=== PATIENT | male | born 1960 | race Caucasian/White ===

== ENCOUNTER 2022-02-11 19:22 | Inpatient (IN) | payer MEDICARE, MEDICAID, SELFPAY ==
[2022-02-11 19:31] VITALS: BP 131/94; PULSE 111; RESP 20; TEMP 36.3; O2SAT 98
[2022-02-11 19:49] VITALS: BP 131/94; PULSE 111; RESP 20; TEMP 36.3; O2SAT 98; BMI 29.8
[2022-02-11 20:00] VITALS: BP 131/94; PULSE 111; RESP 20; TEMP 36.3; O2SAT 98
[2022-02-11 20:15] VITALS: BP 131/94; PULSE 111; RESP 20; TEMP 36.3; O2SAT 98
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
[2022-02-11] MEDS: montelukast sodium 10 mg Tablet PO (21:08)
[2022-02-11] MEDS: atorvastatin 40 mg Tablet 20 MG PO (21:09)
[2022-02-11] MEDS: tizanidine 4 mg Tablet PO (21:09)
[2022-02-11] MEDS: CELEcoxib 100 mg Capsule PO (21:41)
[2022-02-11] MEDS: pregabalin 100 mg Capsule PO (21:42)
[2022-02-11] MEDS: divalproex ER 500 mg Tablet (24H) 1000 MG PO (21:43)
[2022-02-11] MEDS: risperiDONE 1 mg Tablet PO (21:43)
[2022-02-11] MEDS: propranolol 20 mg Tablet 30 MG PO (22:30)
[2022-02-12 05:50] VITALS: BP 131/94; PULSE 111; RESP 20; TEMP 36.3; O2SAT 98
[2022-02-12 06:25] VITALS: BP 137/96; PULSE 84; RESP 19; TEMP 36.8; O2SAT 98
[2022-02-12] MEDS: duloxetine 30 mg Capsule PO (08:15)
[2022-02-12] MEDS: propranolol 20 mg Tablet 30 MG PO ×2 (08:15→17:09)
[2022-02-12] MEDS: divalproex ER 500 mg Tablet (24H) PO (08:16)
[2022-02-12] MEDS: pregabalin 100 mg Capsule PO ×2 (08:16→17:09)
[2022-02-12] MEDS: pantoprazole DR 40 mg Tablet PO (08:16)
[2022-02-12] MEDS: CELEcoxib 100 mg Capsule PO ×2 (08:16→17:09)
[2022-02-12] MEDS: amlodipine 10 mg Tablet PO (08:16)
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
[2022-02-12 12:48] LABS: Basophils # 0.1 10^3/uL (0.0-0.1); Eosinophils # 0.3 10^3/uL (0.0-0.8); Eosinophils % 2.7 %; Hematocrit 49.5 % (42.0-52.0); Hemoglobin 16.7 g/dL (11.7-16.6); Lymphocytes # 3.3 10^3/uL (0.8-4.8); Lymphocytes % 33.8 %; Mean Corpuscular HGB Conc 33.7 g/dL (30.0-36.0); Mean Corpuscular Hemoglobin 31.3 pg (28.0-34.0); Mean Corpuscular Volume 92.9 fl (80-94); Mean Platelet Volume 10.1 fL (7.4-10.4); Monocytes # 1.1 10^3/uL (0.2-0.9); Monocytes % 11.5 %; Neutrophils # 4.91 10^3/uL (1.8-7.7); Nucleated Red Blood Cells % 0 %; Platelet Count 305 10^3/cmm (130-400); Red Blood Count 5.33 10^6/uL (4.1-5.3); Red Cell Distribution Width 13.2 % (12.1-15.1); White Blood Count 9.8 10^3/uL (4.0-10.0)
[2022-02-12 14:00] VITALS: BP 126/87; PULSE 87; RESP 18; TEMP 36.8; O2SAT 93
[2022-02-12 20:34] VITALS: BP 133/89; PULSE 92; RESP 16; TEMP 36.6; O2SAT 93
[2022-02-12] MEDS: montelukast sodium 10 mg Tablet PO (20:51)
[2022-02-12] MEDS: tizanidine 4 mg Tablet PO (20:51)
[2022-02-12] MEDS: hyDROXYzine 25 mg Capsule 50 MG PO (20:51)
[2022-02-12] MEDS: atorvastatin 40 mg Tablet 20 MG PO (20:52)
[2022-02-12] MEDS: risperiDONE 1 mg Tablet PO (20:53)
[2022-02-12] MEDS: divalproex ER 500 mg Tablet (24H) 1000 MG PO (20:53)
--- NOTE | 2022-02-13 00:13 | PC.NURSE ---
PRN ADMIN: Patient c/o of anxiety, PRN Hydroxyzine given as ordered with noted effectiveness.
[2022-02-13 06:00] VITALS: BP 119/81; PULSE 83; RESP 18; TEMP 36.5; O2SAT 94
[2022-02-13] MEDS: efferdent effervescent 1 EACH DENTAL (06:45)
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
--- NOTE | 2022-02-13 08:38 | PC.NURSE ---
DURING SHIFT ASSESSMENT PT HAS RAMBLING SPEECH. HE HAS FLIGHT OF IDEAS. PT TELLS THIS NURSE HE HAS LOST A SHOE BOX FULL OF ONE HUNDRED THOUSAND DOLLARS AND THEN TELL THIS NURSE HE HAS 4 KIDS AGES 44, 10, 6, AND 3. PT THEN CHANGES CONVERSATION TO A PREVIOUS PHYSICIAN AND THAT HE HAS MOVED ALL OVER.
[2022-02-13] MEDS: duloxetine 30 mg Capsule PO (08:47)
[2022-02-13] MEDS: divalproex ER 500 mg Tablet (24H) PO (08:47)
[2022-02-13] MEDS: CELEcoxib 100 mg Capsule PO ×2 (08:47→17:08)
[2022-02-13] MEDS: pantoprazole DR 40 mg Tablet PO (08:48)
[2022-02-13] MEDS: pregabalin 100 mg Capsule PO ×2 (08:48→17:08)
[2022-02-13] MEDS: propranolol 20 mg Tablet 30 MG PO ×2 (08:48→17:08)
[2022-02-13] MEDS: amlodipine 10 mg Tablet PO (08:49)
[2022-02-13] MEDS: calcium carbonate 500 mg Chew Tablet 1000 MG PO (10:17)
[2022-02-13] MEDS: acetaminophen 325 mg Tablet 650 MG PO (10:18)
[2022-02-13 14:00] VITALS: BP 115/78; PULSE 83; RESP 18; TEMP 36.1; O2SAT 93
[2022-02-13 20:48] VITALS: BP 143/82; PULSE 87; RESP 19; TEMP 37.1; O2SAT 92
[2022-02-13] MEDS: divalproex ER 500 mg Tablet (24H) 1000 MG PO (20:49)
[2022-02-13] MEDS: atorvastatin 40 mg Tablet 20 MG PO (20:49)
[2022-02-13] MEDS: risperiDONE 1 mg Tablet PO (20:49)
[2022-02-13] MEDS: tizanidine 4 mg Tablet PO (20:49)
[2022-02-13] MEDS: montelukast sodium 10 mg Tablet PO (20:50)
[2022-02-14 06:00] VITALS: BP 137/91; PULSE 89; RESP 16; TEMP 36.5; O2SAT 95
[2022-02-14] MEDS: CELEcoxib 100 mg Capsule PO ×2 (08:07→17:20)
[2022-02-14] MEDS: duloxetine 30 mg Capsule PO (08:07)
[2022-02-14] MEDS: propranolol 20 mg Tablet 30 MG PO ×2 (08:08→17:20)
[2022-02-14] MEDS: divalproex ER 500 mg Tablet (24H) PO (08:08)
[2022-02-14] MEDS: pantoprazole DR 40 mg Tablet PO (08:08)
[2022-02-14] MEDS: efferdent effervescent 1 EACH DENTAL (08:09)
[2022-02-14] MEDS: amlodipine 10 mg Tablet PO (08:09)
[2022-02-14] MEDS: pregabalin 100 mg Capsule PO ×2 (08:09→17:20)
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
[2022-02-14 14:00] VITALS: BP 124/86; PULSE 85; RESP 18; TEMP 36.3; O2SAT 95
[2022-02-14] MEDS: tizanidine 4 mg Tablet PO (20:25)
[2022-02-14] MEDS: acetaminophen 325 mg Tablet 650 MG PO (20:26)
[2022-02-14] MEDS: montelukast sodium 10 mg Tablet PO (20:26)
[2022-02-14] MEDS: atorvastatin 40 mg Tablet 20 MG PO (20:26)
[2022-02-14] MEDS: divalproex ER 500 mg Tablet (24H) 1000 MG PO (20:26)
[2022-02-14] MEDS: risperiDONE 1 mg Tablet PO (20:26)
[2022-02-14 21:23] VITALS: BP 132/74; PULSE 84; RESP 20; TEMP 36.5; O2SAT 94
[2022-02-15 06:00] VITALS: BP 132/81; PULSE 90; RESP 19; TEMP 36.4; O2SAT 94
[2022-02-15] MEDS: divalproex ER 500 mg Tablet (24H) PO (08:32)
[2022-02-15] MEDS: amlodipine 10 mg Tablet PO (08:32)
[2022-02-15] MEDS: CELEcoxib 100 mg Capsule PO ×2 (08:32→17:32)
[2022-02-15] MEDS: propranolol 20 mg Tablet 30 MG PO ×2 (08:33→17:32)
[2022-02-15] MEDS: pregabalin 100 mg Capsule PO ×2 (08:33→17:32)
[2022-02-15] MEDS: pantoprazole DR 40 mg Tablet PO (08:33)
[2022-02-15] MEDS: duloxetine 30 mg Capsule PO (08:33)
[2022-02-15] MEDS: risperiDONE 1 mg Tablet PO ×3 (08:35→20:53)
[2022-02-15 14:00] VITALS: BP 143/87; PULSE 94; RESP 18; TEMP 36.9; O2SAT 97
--- NOTE | 2022-02-15 16:44 | W.PM.NPUPNS ---
Subjective NPU Subjective: Patient presents today reporting that he is tolerating the addition of Risperdal 1 mg p.o. twice daily to his 1 mg p.o. nightly current dosing. We discussed that this will be something to continue until his dayana truly breaks and then him and his outpatient doctors can discuss reducing it back to the normal doses. He does have resources in place and we continue to discuss the risk-benefit and alternatives discharge once he is having less symptoms and we have a safe discharge plan. Mental Status Exam MSE Comments: This is a overweight versus obese white male with hospital scrubs with adequate grooming and eye contact. No abnormal movements except for mild psychomotor agitation, which is improving. Cooperative with exam in no acute distress. Speech was more normal increased rate and normal volume and less pressured. Mood described as really good, affect slightly less euphoric. Thought process, organized. Thought content: patient denies any suicidal or homicidal ideation, no delusions reported but clear grandiose delusions exist, and denies any auditory or visual hallucinations. Attention and concentration are intact and memory is reliable though none were formally tested. He is alert and oriented three times. Insight and judgment are impaired. Impulse control is impaired. Vitals/I&O/Wt Last Vital Signs Temp 98.4 F 02/15/22 14:00 Pulse 94 02/15/22 14:00 Resp 18 02/15/22 14:00 BP 143/87 02/15/22 14:00 Pulse Ox 97 02/15/22 14:00 Data NPU : 02/12/22 12:02 A&P Assessment and plan (1) Bipolar 1 disorder with moderate dayana: Status: Acute Plan This is a 62 year old white male with a long history of bipolar disorder who presents with dayana possibly triggered by a steroid injection on a 96 hour hold. 1.? Continue current medications. We will monitor the medications and make changes as indicated.? We increased Risperdal to 1 mg the morning and 2 mg at night. 2.? Encourage individual, group and milieu therapy 3.? Continue q-15 minute check for safety 4.? Recommend sober living treatment at the highest level of care to which the patient is willing to commit. 5.? Patient is on 96 hour hold and we will get collateral information and discharge when appears safe. Involuntary Hold Information 96 Hour Hold: 96 Hour Involuntary Admission: Yes Attestations NPU Medical Necessity Statement*: Inpatient hospitalization is medically necessary and the clinically appropriate intervention at this time. We will monitor medications and make changes as indicated. Likely length of stay is 1-3 days. Coding Level of Care Code Acute Precipitator Supervisor for [facility] Fwd Diagnoses Bipolar 1 disorder with moderate dayana F31.12
[2022-02-15] MEDS: calcium carbonate 500 mg Chew Tablet 1000 MG PO (16:55)
--- NOTE | 2022-02-15 17:15 | PC.SOCIAL ---
Patient attended and participated in group.
[2022-02-15] MEDS: fixodent 39 gm Tube 1 APPLIC DENTAL (18:31)
[2022-02-15] MEDS: montelukast sodium 10 mg Tablet PO (20:52)
[2022-02-15] MEDS: divalproex ER 500 mg Tablet (24H) 1000 MG PO (20:52)
[2022-02-15] MEDS: atorvastatin 40 mg Tablet 20 MG PO (20:52)
[2022-02-15] MEDS: tizanidine 4 mg Tablet PO (20:53)
[2022-02-15 21:40] VITALS: BP 132/85; PULSE 91; RESP 18; TEMP 36.6; O2SAT 92
[2022-02-16] MEDS: acetaminophen 325 mg Tablet 650 MG PO (04:38)
[2022-02-16 06:00] VITALS: BP 139/101; PULSE 82; RESP 19; TEMP 36.5; O2SAT 93
[2022-02-16] MEDS: divalproex ER 500 mg Tablet (24H) PO (08:13)
[2022-02-16] MEDS: duloxetine 30 mg Capsule PO (08:13)
[2022-02-16] MEDS: risperiDONE 1 mg Tablet PO ×3 (08:14→20:34)
[2022-02-16] MEDS: propranolol 20 mg Tablet 30 MG PO ×2 (08:14→17:30)
[2022-02-16] MEDS: pantoprazole DR 40 mg Tablet PO (08:14)
[2022-02-16] MEDS: amlodipine 10 mg Tablet PO (08:14)
[2022-02-16] MEDS: CELEcoxib 100 mg Capsule PO ×2 (08:14→17:30)
[2022-02-16] MEDS: pregabalin 100 mg Capsule PO ×2 (09:07→17:30)
[2022-02-16] MEDS: efferdent effervescent 1 EACH DENTAL (10:02)
[2022-02-16] MEDS: fixodent 39 gm Tube 1 APPLIC DENTAL (10:03)
[2022-02-16 13:39] VITALS: BP 136/90; PULSE 91; RESP 20; TEMP 36.7; O2SAT 94
--- NOTE | 2022-02-16 13:59 | W.PM.NPUPNS ---
Subjective NPU Subjective: Patient presents today reporting that he is feeling better each day. He has continued struggle with intrusiveness but his pace of speech, volume and level of intrusiveness continues to decrease each day. We discussed the fact that this is likely related to being further away from the administration of the thyroid as well as increasing the. We discussed the fact that his 96-hour hold ending tomorrow and a plan for discharging him to the resources he has a place at that time. He reports he is eating and sleeping well.. Mental Status Exam MSE Comments: This is a overweight versus obese white male with hospital scrubs with adequate grooming and eye contact. No abnormal movements except for mild psychomotor agitation, which is improving.? Cooperative with exam in no acute distress. Speech was more normal increased rate and normal volume and less pressured.? Mood described as really good, affect slightly less euphoric. Thought process, organized. Thought content: patient denies any suicidal or homicidal ideation, no delusions reported but clear grandiose delusions exist, and denies any auditory or visual hallucinations. Attention and concentration are intact and memory is reliable though none were formally tested. He is alert and oriented three times. Insight and judgment are improving. Impulse control is impaired. Vitals/I&O/Wt Last Vital Signs Temp 98.0 F 02/16/22 13:39 Pulse 91 02/16/22 13:39 Resp 20 H 02/16/22 13:39 BP 136/90 02/16/22 13:39 Pulse Ox 94 02/16/22 13:39 Data NPU : 02/12/22 12:02 A&P Assessment and plan (1) Bipolar 1 disorder with moderate dayana: Status: Acute Plan This is a 62 year old white male with a long history of bipolar disorder who presents with dayana possibly triggered by a steroid injection on a 96 hour hold. 1.? Continue current medications. We will monitor the medications and make changes as indicated.? We increased Risperdal to 1 mg the morning and 2 mg at night. 2.? Encourage individual, group and milieu therapy 3.? Continue q-15 minute check for safety 4.? Recommend sober living treatment at the highest level of care to which the patient is willing to commit. 5.? Patient is on 96 hour hold and we will get collateral information and discharge when appears safe. Involuntary Hold Information 96 Hour Hold: 96 Hour Involuntary Admission: Yes Attestations NPU Medical Necessity Statement*: Inpatient hospitalization is medically necessary and the clinically appropriate intervention at this time. We will monitor medications and make changes as indicated. Likely length of stay is 1-2 days. Coding Level of Care Code Acute Vitreo Retinal Surgeon for [facility] Fwd Diagnoses Bipolar 1 disorder with moderate dayana F31.12
[2022-02-16] MEDS: calcium carbonate 500 mg Chew Tablet 1000 MG PO (15:54)
[2022-02-16] MEDS: divalproex ER 500 mg Tablet (24H) 1000 MG PO (20:33)
[2022-02-16] MEDS: tizanidine 4 mg Tablet PO (20:34)
[2022-02-16] MEDS: atorvastatin 40 mg Tablet 20 MG PO (20:34)
[2022-02-16] MEDS: montelukast sodium 10 mg Tablet PO (20:34)
[2022-02-16 21:25] VITALS: BP 106/65; PULSE 83; RESP 18; TEMP 36.4; O2SAT 94
[2022-02-17 06:00] VITALS: BP 131/88; PULSE 100; RESP 16; TEMP 36.7; O2SAT 96
--- NOTE | 2022-02-17 08:00 | W.PM.NPUDCS ---
Diagnoses at Discharge Discharge Diagnosis (1) Bipolar 1 disorder with moderate dayana: Status: Acute Reason for Visit Reason for Visit: HI Brief History: History of Present Illness Kushal Townsend is a 62 year old male who presented to an outside hospital with erratic behavior and a history of bipolar disorder. He was placed on a 96 hour hold second to this grandiosity and erratic behavior. Per their report he had a procedure days prior and was given injections of steroids which have lead to hospitalizations in the past when he has taken them orally and they believe this precipitated a manic event. He was transferred to [facility] and admitted to the neuropsychiatric unit for definitive treatment of those issues. He presents today reporting he has been hospitalized many, many times, maybe about 10 times just in his 20s and the last time which was December of 2020. He reports he has outpatient services through [facility] and normally goes there every 3 months. He reports he is on Depakote, Cymbalta and Risperdal and reports he goes to a place called [facility] and goes there once or twice a week. He reports that he has been smoking more cigarettes lately, possibly as much as a pack a day sometimes after having quit and at most doing a few a day sometimes. He reports that things have been really stressful recently. He denies alcohol, marijuana or any other illicit drug use. He reports that he did go to a rehab one time due to a girlfriend he had at one time who said he had a drug problem but he denies he did. He reports that he started having issues in his 20s with being grandiose and he was managed quite well on Luana for a long time but then he started having problems with the Luana including thyroid problems, etc. He reports that recently he has had about 15 surgeries and reports that his health has been declining. He denies any suicide attempts or self-injurious behaviors. He reports that in the last 5 years he has had very few decompensations but that he did not realize that injection steroids could have the same impact that oral steroids could have on him. He reports that he advised them of the manic episodes he has had with oral steroid but they proceeded with the procedure and he reports that on the way home from the procedure he started having odd thoughts and started having grandiose and other behaviors that started making his ex-, who had driven him, uncomfortable. During the conversation, he was all over the place with any question that was asked with giving way more information than what could be needed or wanted for instance when he told me his birthday was 1960, he randomly said the word antique and later explained that 62 is old but then went on a diatribe about how he has 20 year old girlfriends and so that means he is still pretty young. He reports that he feels his medications are fine and this is likely just a reactions to the steroid but he does understand he is on a 96 hour hold. Hospital Course Hospital Course He slowly acclimated to the individual, group and milieu therapies provided. He was continued on his Depakote 500 mg every morning and 1000 mg at bedtime. Risperidone was increased to 1 mg 3 times daily. He tolerated these doses and showed steady improvement during his stay. He was able to contract for safety outside hospital prior to discharge. During the hospitalization, patient had routine laboratory studies which were within normal limits except for few outliers. Additionally there was a general medical evaluation which was also within normal limits and revealed no new acute processes. Discharge Summary: At the time of discharge, lethality was denied and psychosis was resolving. Mood and anxiety were well managed. Patient endorsed a plan to follow-up with the aftercare recommendations of the treatment team. Patient was evaluated and deemed to be absent credible lethality, and had achieved the maximum benefit from an inpatient hospitalization, so was discharged. Involuntary Hold Information 96 Hour Hold: 96 Hour Involuntary Admission: Yes Mental Status Exam MSE Comments: This is a overweight versus obese white male with hospital scrubs with adequate grooming and eye contact. No abnormal movements.? Psychomotor activity is normal. Cooperative with exam in no acute distress. Speech was of normal rate and volume. Mood described as good. Thought process, organized. Thought content: patient denies any suicidal or homicidal ideation, no delusions reported but clear grandiose delusions exist, and denies any auditory or visual hallucinations. Attention and concentration are intact and memory is reliable though none were formally tested. He is alert and oriented three times. Insight and judgment are improving. Impulse control is impaired. Cognition: Patient Appearance: Appropriate Ability to Follow Directions: Good Patient Orientation (long list): Person, Place, Name, Day of Month, Month and Year Comprehension Ability: No Impairment Hallucination Type: None Delusion Description: Not Present Thought Process: Flight of Ideas and Loose Associations Behavior: Patient Behavior: Appropriate Speech Pattern: Appropriate and Clear Discharge Data Studies Completed and Pending: Laboratory Results WBC 9.8 10^3/uL (4.0- 10.0) 02/12/22 12:02 RBC 5.33 10^6/uL (4.1 -5.3) H 02/12/22 12:02 Hgb 16.7 g/dL (11.7-1 6.6) H 02/12/22 12:02 Hct 49.5 % (42.0-52.0 ) 02/12/22 12:02 MCV 92.9 fl (80-94) 02/12/22 12:02 MCH 31.3 pg (28.0-34. 0) 02/12/22 12:02 MCHC 33.7 g/dL (30.0-3 6.0) 02/12/22 12:02 RDW 13.2 % (12.1-15.1 ) 02/12/22 12:02 Plt Count 305 10^3/cmm (130 -400) 02/12/22 12:02 MPV 10.1 fL (7.4-10.4 ) 02/12/22 12:02 Neut % (Auto) 50.0 % 02/12/22 12:02 Lymph % (Auto) 33.8 % 02/12/22 12:02 [place] % (Auto) 11.5 % 02/12/22 12:02 Eos % (Auto) 2.7 % 02/12/22 12:02 Baso % (Auto) 1.0 % 02/12/22 12:02 Neut # (Auto) 4.91 10^3/uL (1.8 -7.7) 02/12/22 12:02 Lymph # (Auto) 3.3 10^3/uL (0.8- 4.8) 02/12/22 12:02 [place] # (Auto) 1.1 10^3/uL (0.2- 0.9) H 02/12/22 12:02 Eos # (Auto) 0.3 10^3/uL (0.0- 0.8) 02/12/22 12:02 Baso # (Auto) 0.1 10^3/uL (0.0- 0.1) 02/12/22 12:02 Nucleated RBC % (a uto) 0 % 02/12/22 12:02 Nucleated RBCs # 0.0 /100WBC 02/12/22 12:02 Vitals: Last Vital Signs Temp 98.0 F 02/17/22 06:00 Pulse 100 02/17/22 06:00 Resp 16 02/17/22 06:00 BP 131/88 02/17/22 06:00 Pulse Ox 96 02/17/22 06:00 Discharge Plan Discharge Patient Disposition: Home Condition: Stable Prescriptions: New risperidone 1 mg Tablet 1 mg PO TID 30 Days Qty: 90 0RF Continued amlodipine 10 mg tablet 10 mg PO DAILY 0RF atorvastatin 20 mg tablet 20 mg PO BEDTIME 0RF celecoxib 100 mg capsule 100 mg PO DAILY 0RF divalproex 500 mg tablet extended release 24 hr 500 mg PO DAILY 0RF duloxetine 30 mg capsule,delayed release(DR/EC) 30 mg PO DAILY 0RF esomeprazole magnesium 40 mg capsule,delayed release(DR/EC) 40 mg PO DAILY 0RF montelukast 10 mg tablet 10 mg PO BEDTIME 0RF pregabalin 100 mg capsule 100 mg PO BID 0RF propranolol 60 mg tablet 60 mg PO BID 0RF tizanidine 4 mg tablet 4 mg PO BEDTIME 0RF Discontinued risperidone 1 mg tablet 1 mg PO DAILY 0RF Discharge Orders: Discharge Order (Routine); Ordered 02/17/22 Ordered By: Nolan Alcantara Discharge Diet: Regular Discharge Activity: Resume usual activity Patient Instructions: Opioid Safety Discharge Attestations NPU Time Spent in Discharge Care*: greater than 30 min Specific Discharge Activities: Specific discharge activities: educating patient, discussing with manager organizational/social workers/dc planners, documenting/other paperwork and evaluating patient/reviewing data Coding Level of Care Code Acute Chg FW DC note Diagnoses Bipolar 1 disorder with moderate dayana F31.12
[2022-02-17 08:06] VITALS: BP 131/88; PULSE 100; RESP 16; TEMP 36.7; O2SAT 96
--- NOTE | 2022-02-17 08:49 | PC.SOCIAL ---
IMM Update pg 2 of IMM updated and reviewed w/ patient. Copy provided and Copy placed in chart.
[2022-02-17] MEDS: propranolol 20 mg Tablet 30 MG PO (09:51)
[2022-02-17] MEDS: pregabalin 100 mg Capsule PO (09:51)
[2022-02-17] MEDS: CELEcoxib 100 mg Capsule PO (09:51)
[2022-02-17] MEDS: duloxetine 30 mg Capsule PO (09:51)
[2022-02-17] MEDS: nicotine 2 mg Gum BUCCAL (09:52)
[2022-02-17] MEDS: pantoprazole DR 40 mg Tablet PO (09:52)
[2022-02-17] MEDS: risperiDONE 1 mg Tablet PO (09:52)
[2022-02-17] MEDS: amlodipine 10 mg Tablet PO (09:52)
[2022-02-17] MEDS: divalproex ER 500 mg Tablet (24H) PO (09:52)
== END 2022-02-17 12:25 | disposition home or self-care (01) | DRG 885 ==
PROVIDERS: Admitting Provider Psychiatry & Neurology Psychiatry; Visit Provider Psychiatry & Neurology Psychiatry
DX: F31.12 Bipolar disorder, current episode manic without psychotic features, moderate (principal); Z81.8 Family history of other mental and behavioral disorders
CPT/HCPCS: 85025; 97150; 97165